=== PATIENT | female | born 2000 | race Caucasian/White ===

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

== ENCOUNTER 2018-05-02 18:52 | Emergency (ER) | END 2018-05-02 20:18 | disposition home or self-care (01) ==

== ENCOUNTER 2018-09-02 15:24 | Emergency (ER) | END 2018-09-02 16:56 | disposition home or self-care (01) ==